=== PATIENT | female | born 1975 | race Two or more races ===

== ENCOUNTER 2019-07-29 16:19 | Observation (INO) | payer MEDICAID ==
[~2019-07-29] VITALS: Ht 157.5 cm; Wt 76.2 kg
[~2019-07-29 16:19] MED LIST: DSS100 PO; IBUP-2070 PO; PREN-66 PO
[2019-07-29 19:29] LABS: GLUCOMETER DEV NAME(LOC) 4S.; GLUCOSE,POINT OF CARE 79 MG/DL (70-110)
[2019-08-16] MEDS ORDERED: ACET-66 PO (10:27)
== END 2019-07-29 18:25 | disposition home or self-care (01) ==
LOC: 4S 16:41
PROVIDERS: ADMIT Obstetrics & Gynecology; ATTEND Obstetrics & Gynecology
DX: O24.419 Gestational diabetes mellitus in pregnancy, unspecified control (principal); O16.3 Unspecified maternal hypertension, third trimester; O09.523 Supervision of elderly multigravida, third trimester; O09.43 Supervision of pregnancy with grand multiparity, third trimester; Z3A.34 34 weeks gestation of pregnancy
CPT/HCPCS: 59025; 82962; G0378

== ENCOUNTER 2019-08-02 18:35 | Observation (INO) | payer MEDICAID ==
[~2019-08-02] VITALS: Ht 152.4 cm; Wt 77.6 kg
[2019-08-02 20:55] LABS: GLUCOMETER DEV NAME(LOC) 4S.; GLUCOSE,POINT OF CARE 195 MG/DL (70-110)
[2019-08-02 21:18] VITALS: BP 141/83
[2019-08-02 23:15] LABS: GLUCOMETER DEV NAME(LOC) 4S.; GLUCOSE,POINT OF CARE 158 MG/DL (70-110)
[2019-08-16] MEDS ORDERED: ACET-66 PO (10:27)
== END 2019-08-02 23:25 | disposition home or self-care (01) ==
LOC: 4S 18:35
PROVIDERS: ADMIT Obstetrics & Gynecology; ATTEND Obstetrics & Gynecology
DX: O24.113 Pre-existing type 2 diabetes mellitus, in pregnancy, third trimester (principal); E11.9 Type 2 diabetes mellitus without complications; O10.913 Unspecified pre-existing hypertension complicating pregnancy, third trimester; Z3A.34 34 weeks gestation of pregnancy
CPT/HCPCS: 59025; 81001; 82962; G0378

== ENCOUNTER → 2024-10-01 | Emergency (ER) | payer MEDICAID, OTHER ==
[~2024-10-01] VITALS: Ht 162.6 cm; Wt 69.0 kg
[~2024-10-01] MED LIST changes: +ACET-3385 PO; +IBUP-1492 PO; -IBUP-2070 PO
[2024-10-02 00:21] VITALS: TEMP 98.5
[2024-10-02 00:25] VITALS: BP 155/93; PULSE 83; RESP 17; O2SAT 100
== END | disposition left against medical advice (07) ==
LOC: EMS 23:21
DX: R07.9 Chest pain, unspecified (principal); E11.9 Type 2 diabetes mellitus without complications; I10 Essential (primary) hypertension; Z88.0 Allergy status to penicillin; Z79.1 Long term (current) use of non-steroidal anti-inflammatories (NSAID)
CPT/HCPCS: 93005; 99283